=== PATIENT | female | born 1940 | race Native Hawaiian/Other Pacific Islander ===

== ENCOUNTER → 2017-01-26 17:33 | Outpatient (CLI) | payer BC | END | disposition home or self-care (01) | LOC: AMB 17:33 | DX: Z04.3 Encounter for examination and observation following other accident (principal) ==

== ENCOUNTER 2022-03-27 15:16 | Outpatient (CLI) | payer OTHER | END 2022-03-27 19:03 | disposition home or self-care (01) | LOC: US 15:16 | PROVIDERS: ATTEND Internal Medicine | DX: S50.01XA Contusion of right elbow, initial encounter (principal); Y92.89 Other specified places as the place of occurrence of the external cause ==

== ENCOUNTER 2022-06-30 09:49 | Outpatient (CLI) | payer OTHER | END 2022-06-30 19:04 | disposition home or self-care (01) | LOC: US 09:49 | PROVIDERS: ATTEND Internal Medicine | DX: J01.00 Acute maxillary sinusitis, unspecified (principal); R42 Dizziness and giddiness; R41.3 Other amnesia ==

== ENCOUNTER 2022-07-11 10:24 | Outpatient (CLI) | payer OTHER | END 2022-07-11 19:59 | disposition home or self-care (01) | LOC: CT 10:24 | PROVIDERS: ATTEND Internal Medicine | DX: J01.00 Acute maxillary sinusitis, unspecified (principal); R42 Dizziness and giddiness; R41.3 Other amnesia; Z12.31 Encounter for screening mammogram for malignant neoplasm of breast ==

== ENCOUNTER 2023-05-11 09:55 | Outpatient (CLI) | payer OTHER | END 2023-05-11 19:16 | disposition home or self-care (01) | LOC: RAD 09:55 | PROVIDERS: ATTEND Internal Medicine | DX: Z78.0 Asymptomatic menopausal state (principal) ==